=== PATIENT | male | born 1975 | race Two or more races ===

== ENCOUNTER 2017-02-10 09:03 | Emergency (ER) | payer BC ==
[2017-02-10 09:16] VITALS: BP 137/83
[2017-02-10] MEDS ORDERED: Fluorescein Sodium TOPICAL* 1 MG TEST OPHTHALMIC ONE (09:44)
--- NOTE | 2017-02-10 10:00 | UC ---
Sena Velazquez SooYoung, scribed for Annalise Lange MD on 02/10/17 at 0935 . Eye Complaint HPI - HPI Summary HPI Summary: A 41 y/o M presents to [facility] with c/o L eyelid pain and swelling onset 2 days ago. Denies vision changes, drainage, photophobia, foreign body sensation. Denies pain with eye movement. No sinus congestion. No h/o MRSA. No fevers, chills, rash. No wounds, lesions, abrasions. Pt was doing yard work, and accidentally hit himself with a pitchfork along his L jaw. At the time of incident, he did not feel anything was wrong with his eye. The following morning , his eyelid was swollen and mildly painful to touch. Pt was able to continue doing yard and garden work over the past few days. He states the jaw pain resolved. Pt does not wear contact lenses, is a non-smoker and occasional drinker. Denies daily medications. Patient's medication reviewed this visit. - History of Current Complaint Chief Complaint: UCEye Stated Complaint: SWOLLEN EYELID Time Seen by Provider: 02/10/17 09:23 Hx Obtained From: Patient Onset/Duration: Sudden Onset, Lasting Days, Still Present Timing: Constant Severity Currently: Mild Pain Intensity: 1 Pain Scale Used: 0-10 Numeric Location of Injury: Eye Lid (upper) Aggravating Factor(s): Nothing Alleviating Factor(s): Nothing Associated Signs And Symptoms: Positive: Negative - Allergies/Home Medications Allergies/Adverse Reactions: Allergies Allergy/AdvReac Type Severity Reaction Status Date / Time Codeine Allergy Intermediate Nausea And Verified 02/10/17 09:16 Vomiting PMH/Surg Hx/FS Hx/Imm Hx Previously Healthy: Yes Endocrine History Of: Denies: Diabetes Cardiovascular History Of: Denies: Hypertension, Pacemaker/ICD Respiratory History Of: Denies: Asthma - Surgical History Surgical History: Yes Surgery Procedure, Year, and Place: ACL REPLACEMENT LT KNEE - Family History Known Family History: Positive: Diabetes - grandmother - Social History Occupation: Employed Full-time Lives: With Family Alcohol Use: Weekly Alcohol Amount: 2-3 x week Substance Use Type: None Smoking Status (MU): Never Smoked Tobacco Review of Systems Constitutional: Negative Skin: Other - left eyelid erythema Eyes: Other - : mild pain and swelling at L eyelid ENT: Negative Respiratory: Negative Cardiovascular: Negative Gastrointestinal: Negative Genitourinary: Negative Motor: Negative Neurovascular: Negative Musculoskeletal: Negative Neurological: Negative Psychological: Negative All Other Systems Reviewed And Are Negative: Yes Physical Exam Triage Information Reviewed: Yes Completion Of Physical Exam Limited Due To: Altered Mental Status Appearance: Well-Appearing, No Pain Distress, Well-Nourished Vital Signs: Initial Vital Signs Temp 98.0 F 02/10/17 09:09 Pulse 64 02/10/17 09:09 Resp 18 02/10/17 09:09 BP 137/83 02/10/17 09:09 Pulse Ox 100 02/10/17 09:09 Vital Signs Reviewed: Yes Eyes: Positive: Conjunctiva Clear, Other: - VITALIY, EOM intact and full No photophobia used fluoresceine: no uptake, no foreign body, lids everted - no foreign body, no stye identified upper lid with mild edema and diffuse erythema. No fluctuance no eryhema to nasal bridge, forehead,. Negative: Conjunctiva Inflamed, Discharge ENT: Positive: Normal ENT inspection, Hearing grossly normal Dental Exam: Normal Neck exam: Normal Neck: Positive: Supple, Nontender, No Lymphadenopathy Respiratory Exam: Normal Respiratory: Positive: Chest non-tender, Lungs clear, Normal breath sounds Cardiovascular Exam: Normal Cardiovascular: Positive: RRR, No Murmur, Pulses Normal Abdominal Exam: Normal Abdomen Description: Positive: Nontender, No Organomegaly, Soft Bowel Sounds: Positive: Present Musculoskeletal Exam: Normal Musculoskeletal: Positive: Strength Intact Neurological Exam: Normal Neurological: Positive: Alert, Muscle Tone Normal Psychological Exam: Normal Psychological: Positive: Normal Response To Family Skin Exam: Normal Skin: Positive: Other - see ENT Eye Complaint Course/Dx - Course Course Of Treatment: Blood pressure noted and patient informed to follow up with PCP. Pt with erythema and mild edema left upper eyelid. No visible lesion or hordelom. concern for early cellulitis. Rx augmentin. warm soaks. pcp f/ u. return precautions discussed. pt comfortable and in agreement with plan - Differential Dx/Diagnosis Provider Diagnoses: early eyelid cellulitis Discharge - Discharge Plan Condition: Stable Disposition: HOME Prescriptions: Amoxicillin/Clavulanate TAB* [Augmentin TAB 875*] 875 mg PO BID #14 tab Patient Education Materials: Cellulitis (ED) Referrals: [facility] [place] [facility]ERR[facility] [Outside] No Primary Care Phys,NOPCP [Primary Care Provider] - Additional Instructions: - Take antibiotics as prescribed 2 times a day. This antibiotic frequently causes diarrhea. Eating yogurt or taking a pro-biotic often helps decrase diarrhea - Apply a wet, warm washcloth to your eye 3 times a day for 10 minutes each time for the next 3 days - If you develop increased reddness, red spreading to your nose or cheek, eye pain, fevers, chills or any other questions - contact your doctor or go to the emergency department - CAll your doctor or return with any questions or concerns The documentation as recorded by the Sena welsh SooYoung accurately reflects the service I personally performed and the decisions made by me, Annalise Lange MD.
[2017-02-10] MEDS ORDERED: Amoxicillin/Clavulanate TAB* 875 MG PO ONE (10:09)
== END 2017-02-10 10:18 | disposition home or self-care (01) ==
LOC: UCEAST 09:03
DX: H00.034 Abscess of left upper eyelid (principal)
CPT/HCPCS: 99212; A9270-GY; G0463

== ENCOUNTER 2019-05-02 10:18 | Emergency (ER) | payer BC ==
--- NOTE | 2019-05-02 12:18 | UC ---
Truncal Trauma HPI - HPI Summary HPI Summary: ONE WEEK AGO TODAY PATIENT WAS SURFING WHEN HIS SURFBOARD STRUCK HIS LEFT RIB CAGE. HAS HAD PAIN SINCE THEN ALTHOUGH HE ADMITS IT HAS IMPROVED. PAIN IS ALLEVIATED WITH OTC ANTI-INFLAMMATORIES. SYMPTOMS WORSE WITH DEEP BREATHING AND MOVEMENT. IS CONCERNED ABOUT FRACTURE. DENIES SOB, BRUISING, N/V, FEVER. - History Of Current Complaint Chief Complaint: UCTrauma Stated Complaint: RIB INJURY Time Seen by Provider: 05/02/19 10:57 Hx Obtained From: Patient Onset/Duration: Sudden Onset, Lasting Days, Still Present Onset Of Pain: Immediate Severity Initially: Moderate Severity Currently: Moderate Pain Intensity: 2 Pain Scale Used: 0-10 Numeric Mechanism Of Injury: Direct Blow Aggravating Factor(s): Movement, Deep Breathing, Cough Alleviating factor(s): OTC Medication - IBUPROFEN Associated Signs And Symptoms: Positive: Negative - Allergies/Home Medications Allergies/Adverse Reactions: Allergies Allergy/AdvReac Type Severity Reaction Status Date / Time codeine AdvReac Nausea And Verified 05/02/19 10:43 Vomiting Home Medications: Home Medications Ibuprofen TAB* [Advil TAB*] 600 mg PO Q6H PRN 05/02/19 [History Confirmed ] PMH/Surg Hx/FS Hx/Imm Hx Previously Healthy: Yes - Surgical History Surgical History: Yes Surgery Procedure, Year, and Place: ACL LT KNEE - Family History Known Family History: Positive: Diabetes - grandmother - Social History Alcohol Use: Weekly Alcohol Amount: 2-3 x week Substance Use Type: None Smoking Status (MU): Never Smoked Tobacco Review of Systems All Other Systems Reviewed And Are Negative: Yes Constitutional: Positive: Negative Skin: Positive: Negative Respiratory: Positive: Other - PLEURITIC PAIN LEFT SIDE. Negative: Shortness Of Breath, Cough Cardiovascular: Positive: Negative Gastrointestinal: Positive: Negative Musculoskeletal: Positive: Other: - LEFT ANTERIOR RIB CAGE PAIN Physical Exam Triage Information Reviewed: Yes Appearance: Well-Appearing, No Pain Distress, Well-Nourished Vital Signs: Initial Vital Signs Temp 97.9 F 05/02/19 10:38 Pulse 78 05/02/19 10:38 Resp 16 05/02/19 10:38 BP 128/80 05/02/19 10:38 Pulse Ox 98 05/02/19 10:38 Vital Signs Reviewed: Yes Eyes: Positive: Conjunctiva Clear ENT: Positive: Hearing grossly normal Neck: Positive: Supple Respiratory Exam: Normal Respiratory: Positive: No respiratory distress, No accessory muscle use Cardiovascular Exam: Normal Abdomen Description: Positive: Soft Musculoskeletal: Positive: No Edema, Other: - TTP LEFT ANTERIOR RIB CAGE Neurological: Positive: Alert Psychological: Positive: Age Appropriate Behavior Skin: Negative: Rashes Diagnostics - Radiology LEFT RIB XRAYS Radiology Interpretation Completed By: Radiologist Summary of Radiographic Findings: SLIGHTLY DISPLACED FRACTURE OF THE LEFT ANTERIOR SEVENTH RIB. Truncal Trauma Course/Dx - Course Course Of Treatment: XRAYS SHOW SLIGHTLY DISPLACED FRACTURE OF THE LEFT ANTERIOR SEVENTH RIB. PAIN IS WELL CONTROLLED WITH OTC MEDICATIONS. ADVISED DEEP BREATHS PERIODICALLY THROUGHOUT THE DAY TO HELP KEEP HIS LUNGS EXPANDED. TO THE ER IF HE DEVELOPS BRUISING, FEVER, SHORTNESS OF BREATH OR ANY OTHER CONCERNING SYMPTOMS. - Differential Dx/Diagnosis Provider Diagnosis: Left rib fracture Discharge - Sign-Out/Discharge Documenting (check all that apply): Patient Departure All imaging exams completed and their final reports reviewed: Yes - Discharge Plan Condition: Stable Disposition: HOME Patient Education Materials: Rib Fracture (ED) Referrals: [facility] [Outside] - If Needed Additional Instructions: XRAYS TODAY SHOW SLIGHTLY DISPLACED FRACTURE OF THE LEFT ANTERIOR SEVENTH RIB. RIB INJURIES AND FRACTURES: You have been diagnosed as having either bruised or broken ribs. These two injuries are treated in the same way. It will usually take four to six weeks for these injured ribs to heal. Sometimes, rib belts or anesthetic injections of the chest wall help reduce the pain. You should cough or take a deep breath at least every hour or two to prevent lung complications. You should not engage in any strenuous physical activity until released by your physician. The usual rule is "if it hurts, don't do it." Rib fractures can lead to serious lung complications including lung collapse, hemorrhage, and pneumonia. You should go to the ED if any of the following occur: (1) Fever or chills. (2) Persistent cough, coughing up blood, or shortness of breath. (3) Increasing pain. (4) Weakness, lightheadedness, or fainting. Be sure to take slow deep breaths several times daily to help keep your lungs expanded. IBUPROFEN MAX DOSE: 600MG (3 TABS) EVERY 6 HRS OR 800MG (4 TABS) EVERY 8 HRS OR NAPROXEN MAX DOSE: 440MG (2 TABS) EVERY 12 HRS TYLENOL MAX DOSE: 1000MG (2 EXTRA STRENGTH TABS) EVERY 8 HRS OR 650MG (2 REGULAR TABS) EVERY 6 HRS - Billing Disposition and Condition Condition: STABLE Disposition: Home
[2019-05-02 12:46] VITALS: BP 128/78
== END 2019-05-02 12:46 | disposition home or self-care (01) ==
LOC: UCEAST 10:18
DX: S22.32XA Fracture of one rib, left side, initial encounter for closed fracture (principal); W22.8XXA Striking against or struck by other objects, initial encounter; Y93.18 Activity, surfing, windsurfing and boogie boarding; Y92.832 Beach as the place of occurrence of the external cause; Y99.8 Other external cause status; Z88.5 Allergy status to narcotic agent
CPT/HCPCS: 99211; G0463